=== PATIENT | female | born 1995 | race Caucasian/White ===

== ENCOUNTER 2024-12-03 11:06 | Outpatient (CLI) | payer OTHER, SELFPAY ==
[2024-12-03 10:39] LABS: HCG Quant, Pregnancy 6205 mIU/mL (1-3)
== END 2024-12-03 11:07 | disposition home or self-care (01) ==
LOC: LBO 11:07
PROVIDERS: Visit Provider Nurse Practitioner Women's Health
DX: N91.2 Amenorrhea, unspecified (principal); Z32.01 Encounter for pregnancy test, result positive; N96 Recurrent pregnancy loss
CPT/HCPCS: 36415; 84702

== ENCOUNTER 2025-01-25 00:49 | Outpatient (CLI) | payer OTHER, SELFPAY ==
[2025-01-25 15:00] LABS: Abs Immature Grans 0.05 10^3/uL (0.0-0.06); Absolute Basophil Count 0.05 10^3/uL (0.0-0.2); Absolute Eosinophil Count 0.16 10^3/uL (0.0-0.7); Absolute Monocyte Count 0.83 10^3/uL (0.1-0.8); Basophils % 0.4 %; Eosinophils % 1.2 %; HGB 12.3 g/dL (11.2-15.7); Immature Grans % 0.4 %; Lymphocytes % 28.1 %; MCH 27.7 pg (27.0-33.0); MCHC 32.4 % (32.0-36.0); MCV 86 fL (80-95); Monocytes % 6.2 %; Neutrophils % 63.7 %; Platelet Count 310 10^3/uL (130-400); RBC 4.44 10^6/uL (3.93-5.22); RDW 13.9 % (11.7-14.6); RDW-SD 42.9 fL; WBC 13.33 10^3/uL (4.4-10.8)
[2025-01-25 15:02] LABS: Absolute Lymphocyte Count 3.75 10^3/uL (1.2-3.4); Absolute Neutrophil Count 8.49 10^3/uL (1.2-6.7)
[2025-01-25 15:12] LABS: ALT 83 U/L (14-59); AST 31 U/L (15-37); Albumin 2.9 g/dL (3.4-5.0); Alkaline Phosphatase 97 U/L (46-116); Anion Gap 10.3 mmol/L (3-11); BUN 10 mg/dL (7-18); Bilirubin, Total 0.26 mg/dL (0.2-1.0); CO2 24.7 mmol/L (21.0-32.0); CREATININE 0.7 mg/dL (0.55-1.02); Calcium 9.1 mg/dL (8.5-10.1); Chloride 106 mmol/L (98-107); Estimated GFR 119.99 (mL/min/1.73m2); Glucose 92 mg/dL (74-106); Sodium 141 mmol/L (136-145); Uric Acid 3.9 mg/dL (2.6-6.0)
[2025-01-28 09:13] LABS: Hepatitis C Ab w Rflx HCV PCR Negative (Negative)
[2025-01-28 09:26] LABS: Hepatitis B Surface Ag Negative (Negative)
[2025-01-28 10:03] LABS: HIV-1/2 Ag & Ab Screen Negative (Negative)
[2025-01-28 11:20] LABS: Rubella IgG Ab (UVM) Positive (See Note)
[2025-01-28 11:23] LABS: Varicella IgG Antibody Positive (See Note)
[2025-01-28 18:05] LABS: Syphilis IgG w/Reflex Nonreactive (Nonreactive)
[2025-01-30 18:37] LABS: Specimen WB Whole Blood
[2025-02-11 10:16] LABS: Result Summary NEGATIVE; Specimen WB Whole Blood
== END 2025-01-25 00:50 | disposition home or self-care (01) ==
PROVIDERS: Advanced Practice Midwife; Visit Provider Advanced Practice Midwife
DX: Z34.91 Encounter for supervision of normal pregnancy, unspecified, first trimester (principal)
CPT/HCPCS: 36415; 80053; 81220; 81222; 81329; 86787; 86803; 86850; 86900; 86901; 87340; 87389; 84550; 85025; 86762; 86780

== ENCOUNTER 2025-01-25 14:13 | Outpatient (REF) | payer OTHER, SELFPAY ==
[2025-01-25 16:05] LABS: COMMENT (LAB VIEW ONLY) 213.04 mg/dL; PROTEIN 14.9 mg/dL; Prot/Crea Ur Ratio 0.06
[2025-01-25 16:20] LABS: *AMPHETAMINES SCREEN URINE Negative (Negative); *BARBITURATES SCREEN URINE Negative (Negative); *BENZODIAZEPINES SCREEN URINE Negative (Negative); Cannabinoids THC Negative (Negative); Cocaine Screen,Urine Negative (Negative); METHADONE URINE SCREEN Negative (Negative); OPIATES URINE SCREEN Negative (Negative)
[2025-01-25 16:22] LABS: Tricyclic Antidepressants Negative (Negative)
[2025-01-26 18:36] LABS: Fentanyl Scr w/Rfx Confirm Negative ng/mL (<1)
[2025-01-28 12:14] LABS: Chlamydia Result Negative (Negative); GC Result Negative (Negative)
[2025-01-30 10:09] LABS: Buprenorphine Negative ng/mL (Cutoff: 5.0); Norbuprenorphine Negative ng/mL (Cutoff: 2.5)
== END 2025-01-25 14:14 | disposition home or self-care (01) ==
LOC: LBN 14:13
PROVIDERS: Visit Provider Advanced Practice Midwife
DX: Z34.91 Encounter for supervision of normal pregnancy, unspecified, first trimester (principal); Z11.3 Encounter for screening for infections with a predominantly sexual mode of transmission; Z02.83 Encounter for blood-alcohol and blood-drug test
CPT/HCPCS: 80307; 80348; 87491; 87591; 82565; 84156; 87086